=== PATIENT | male | born 1980 | race Caucasian/White ===

== ENCOUNTER 2018-06-02 07:44 | Emergency (ER) | payer MEDICAID ==
--- NOTE | 2018-06-02 08:03 | ED Physician Documentation ---
PD HPI SKIN - Stated complaint Stated Complaint: ABSCESS - History obtained from History obtained from: Patient - History of Present Illness Timing - onset: How many days ago (several) Timing - duration: Days (several) Timing - details: Gradual onset, Still present Location: Neck (back of neck) Quality / character: Painful, Draining (just this morning) Associated symptoms: Myalgias. No: Fever, N/V/D Review of Systems Constitutional: reports: Myalgias. denies: Fever, Chills Nose: denies: Rhinorrhea / runny nose, Congestion Throat: denies: Sore throat Respiratory: denies: Cough PD PAST MEDICAL HISTORY - Past Medical History Cardiovascular: None Respiratory: None Endocrine/Autoimmune: None GI: None : None HEENT: None Psych: None Musculoskeletal: None Derm: None - Past Surgical History Past Surgical History: No - Present Medications Home Medications: Ambulatory Orders Medication Instructions Recorded Confirmed HYDROcod/ACETAM 5/325 [Vicodin 1 - 2 ea PO Q6H PRN #15 tablet 07/10/14 5/325] cephALEXin [Keflex] 500 mg PO Q6H #28 capsule 07/10/14 Chlorhexidine Gluconate [Hibiclens] 10 ml TP DAILY #473 ml 06/02/18 Doxycycline Monohydrate 100 mg PO BID #14 tablet 06/02/18 HYDROcod/ACETAM 5/325 [[place] 5/325] 1 tab PO Q6H PRN #15 tablet 06/02/18 Mupirocin 1 applic TP TID #15 oint...g. 06/02/18 - Allergies Allergies/Adverse Reactions: Allergies Allergy/AdvReac Type Severity Reaction Status Date / Time Sulfa (Sulfonamide Allergy Intermediate Rash Verified 05/03/14 20:19 Antibiotics) - Social History Does the pt smoke?: Yes Smoking Status: Current every day smoker Does the pt drink ETOH?: No Does the pt have substance abuse?: Yes - Immunizations Immunizations are current?: No Immunizations: TDAP >10years/unknown - POLST Patient has POLST: No PD ED PE NORMAL - Vitals Vital signs reviewed: Yes - General General: Alert and oriented X 3, Well developed/nourished, Other (appears in some pain at back of nek) - HEENT HEENT: Atraumatic, Pharynx benign - Neck Neck: Supple, no meningeal sign, No adenopathy - Cardiac Cardiac: RRR, No murmur - Respiratory Respiratory: No respiratory distress, Clear bilaterally - Derm Derm: Normal color, Warm and dry, Other (back of neck with rounded area of redness, swelling, tenderness. Bedside U/S showed there to be inflammed tissue but no fluid reservoir.) Results - Vitals Vitals: Oxygen O2 Source Room air PD MEDICAL DECISION MAKING - ED course Complexity details: considered differential (tender and swelling c/w abscess. Patient says it did drain some last evening and this morning. Bedside US did not show any significant fluid present (2 mm only). ), d/w patient - Sepsis Event Vital Signs: Oxygen O2 Source Room air Departure - Departure Disposition: Home, Self Care Clinical Impression: Abscess Record reviewed to determine appropriate education?: Yes Instructions: ED Staph Infec Abx Tx Only Prescriptions: Chlorhexidine Gluconate [Hibiclens] 10 ml TP DAILY #473 ml Doxycycline Monohydrate 100 mg PO BID #14 tablet HYDROcod/ACETAM 5/325 [[place] 5/325] 1 tab PO Q6H PRN #15 tablet PRN Reason: Pain Mupirocin 1 applic TP TID #15 oint...g. Comments: It does appear to have drained enough this morning that there is very little fluid left in there at this point. Will treat with antibiotics for the infection orally and also use mupirocin topical antibiotic at that site to 3 times a day. Use some naproxen or ibuprofen for pain and inflammation and add Tylenol or hydrocodone if needed for pains. Use chlorhexidine body wash in the shower if you have access to cleanse the germs generally off your skin to prevent or reduce the chance of other spots starting. Recheck if this is not improved quite a bit over the next several days. After the tenderness and drainage have decreased and gone away, the firmness of the scar tissue there may last for several weeks. Discharge Date/Time: 06/02/18 09:06
[2018-06-02] MEDS ORDERED: DOXYCYCLINE 100 MG TABLET PO STA (08:22)
[2018-06-02] MEDS ORDERED: MUPIROCIN 2% OINT 1 GM TOP STA (08:22)
[2018-06-02] MEDS ORDERED: IBUPROFEN 600 MG TABLET PO STA (08:22)
[2018-06-02] MEDS ORDERED: HYDROcod/ACETAM 5/325 MG TABLET PO STA (08:22)
[2018-06-02 09:07] VITALS: BP 140/83
== END 2018-06-02 09:06 | disposition home or self-care (01) ==
LOC: ED 07:44
DX: L02.11 Cutaneous abscess of neck (principal); F17.200 Nicotine dependence, unspecified, uncomplicated
CPT/HCPCS: 99283; A9270

== ENCOUNTER 2021-05-02 02:48 | Outpatient (CLI) | payer MEDICAID | END 2021-05-02 02:49 | disposition critical access hospital (66) | LOC: EMS 02:48 | DX: L98.9 Disorder of the skin and subcutaneous tissue, unspecified (principal); Z59.0 Homelessness; Z76.89 Persons encountering health services in other specified circumstances | CPT/HCPCS: A0425; A0429 ==

== ENCOUNTER 2021-05-02 03:18 | Emergency (ER) | payer MEDICAID ==
[2021-05-02] MEDS ORDERED: DOXYCYCLINE 100 MG TABLET PO STA (03:36)
[2021-05-02] MEDS ORDERED: LORazepam 1 MG TABLET PO STA (03:36)
[2021-05-02] MEDS ORDERED: MUPIROCIN 2% OINT 1 GM TOP STA (03:36)
--- NOTE | 2021-05-02 03:36 | ED Physician Documentation ---
PD HPI SKIN - Stated complaint Stated Complaint: HEAD WOUND/ INFECTION - History obtained from History obtained from: Patient, EMS - History of Present Illness Timing - onset: How many months ago (1) Timing - duration: Months (1) Timing - details: Gradual onset (Patient states he has had a left latter day wound that drains pus periodically with swelling. He was seen in an ER and prescribed antibiotic but did not get it filled. He is here for evaluation of that. Also states he has been doing heroin and would like possible drug treatment/detox.), Waxing and waning, Other (the wound is not any worse currently, but has not improved. He was about to be arrested for being in stolen vehicle with friends, but asked to come to hospital instead.) Location: Scalp (left latter day area) Quality / character: Painful, Raised, Draining (episodically after swelling up) Review of Systems Constitutional: denies: Fever, Chills, Myalgias Nose: denies: Rhinorrhea / runny nose, Congestion Throat: denies: Sore throat Respiratory: denies: Cough GI: denies: Nausea, Vomiting, Diarrhea Psychiatric: reports: Anxiety (feels anxious and nauseated if doesn't keep taking heroin.) PD PAST MEDICAL HISTORY - Past Medical History Cardiovascular: None Respiratory: None Endocrine/Autoimmune: None GI: None : None HEENT: None Psych: Anxiety Musculoskeletal: None Derm: None - Past Surgical History Past Surgical History: No - Present Medications Home Medications: Ambulatory Orders Medication Instructions Recorded Confirmed HYDROcod/ACETAM 5/325 [Vicodin 1 - 2 ea PO Q6H PRN #15 tablet 07/10/14 5/325] cephALEXin [Keflex] 500 mg PO Q6H #28 capsule 07/10/14 Chlorhexidine Gluconate [Hibiclens] 10 ml TP DAILY #473 ml 06/02/18 Doxycycline Monohydrate 100 mg PO BID #14 tablet 06/02/18 HYDROcod/ACETAM 5/325 [[place] 5/325] 1 tab PO Q6H PRN #15 tablet 06/02/18 Mupirocin 1 applic TP TID #15 oint...g. 06/02/18 Chlorhexidine Gluconate [Hibiclens] 15 ml TP DAILY #236 ml 05/02/21 Doxycycline Monohydrate 150 mg PO BID #14 cap 05/02/21 LORazepam [Ativan] 1 mg PO Q6H PRN #15 tablet 05/02/21 Mupirocin Calcium [Mupirocin] 1 applic TP TID #15 gm 05/02/21 Promethazine [Phenergan] 25 mg PO Q6H PRN #15 tab 05/02/21 - Allergies Allergies/Adverse Reactions: Allergies Allergy/AdvReac Type Severity Reaction Status Date / Time Sulfa (Sulfonamide Allergy Intermediate Rash Verified 05/03/14 20:19 Antibiotics) amoxicillin [From Augmentin] Allergy Rash Verified 05/02/21 03:47 clavulanic acid Allergy Rash Verified 05/02/21 03:47 [From Augmentin] - Social History Does the pt smoke?: Yes Smoking Status: Current every day smoker Does the pt drink ETOH?: No Does the pt have substance abuse?: Yes - Immunizations Immunizations are current?: No Immunizations: TDAP >10years/unknown - POLST Patient has POLST: No PD ED PE NORMAL - Vitals Vital signs reviewed: Yes - General General: Alert and oriented X 3, No acute distress (but is somewhat anxious), Well developed/nourished - Cardiac Cardiac: No murmur. No: RRR (regular but mild tachycardic) - Respiratory Respiratory: Clear bilaterally - Derm Derm: Normal color, Warm and dry, Other (left latter day with rounded area of skin irritation with underlying firmness but no fluctuance. Superficial skin ulceration above right eyebrow as well. Appear like infections. ) Results - Vitals Vitals: Vital Signs - 24 hr 05/02/21 05/02/21 03:19 03:41 Temperature 37.1 C Heart Rate 105 H 105 H Respiratory 16 16 Rate Blood Pressure 117/81 H 111/81 H O2 Saturation 97 97 Oxygen O2 Source Room air PD MEDICAL DECISION MAKING - ED course Complexity details: re-evaluated patient, considered differential (His skin infection seems likely staph and can treat with DOxycycline, mupirocin and Hibiclens. He is considering if he wants to get screening labs and wait for Social Work in the morning regarding drug detox/treatment. ), d/w patient ED course: Patient opted to be discharged with information regarding the detox center in [place]. He did not want to wait for social work. Departure - Departure Disposition: 01 Home, Self Care Clinical Impression: Skin infection, Heroin abuse, Anxiety Condition: Stable Record reviewed to determine appropriate education?: Yes Prescriptions: LORazepam [Ativan] 1 mg PO Q6H PRN #15 tablet PRN Reason: Anxiety Doxycycline Monohydrate 150 mg PO BID #14 cap Chlorhexidine Gluconate [Hibiclens] 15 ml TP DAILY #236 ml Mupirocin Calcium [Mupirocin] 1 applic TP TID #15 gm Promethazine [Phenergan] 25 mg PO Q6H PRN #15 tab PRN Reason: Nausea / Vomiting Comments: He can use the chlorhexidine antiseptic soap locally at the area of the face and scalp or body wide to try to reduce the chance of spreading to other places. Clean once or twice daily. Use the mupirocin antibiotic ointment locally to the skin infections. Doxycycline antibiotic twice daily for a week for the infections as well. Lorazepam as needed for anxiety/withdrawal symptoms, and Phenergan for nausea as needed. Contact the [facility] in [place] regarding Acute Detox, [address], .
[2021-05-02 04:44] VITALS: BP 110/84
== END 2021-05-02 04:55 | disposition home or self-care (01) ==
LOC: EDUNIT# → ED 03:18
DX: L08.9 Local infection of the skin and subcutaneous tissue, unspecified (principal); L98.499 Non-pressure chronic ulcer of skin of other sites with unspecified severity; F11.10 Opioid abuse, uncomplicated; F41.9 Anxiety disorder, unspecified; F17.200 Nicotine dependence, unspecified, uncomplicated
CPT/HCPCS: 99283; 99284; A9270; J8499

== ENCOUNTER 2021-06-15 23:31 | Outpatient (CLI) | payer MEDICAID | END 2021-06-15 23:32 | disposition critical access hospital (66) | LOC: EMS 23:31 | DX: R41.82 Altered mental status, unspecified (principal); R46.89 Other symptoms and signs involving appearance and behavior | CPT/HCPCS: A0425; A0429; A0999 ==

== ENCOUNTER 2021-06-15 23:45 | Emergency (ER) | payer MEDICAID ==
[2021-06-15 23:52] VITALS: BP 106/59
--- NOTE | 2021-06-16 00:29 | ED Physician Documentation ---
History of Present Illness - Stated complaint Stated Complaint: OD - Chief complaint Chief Complaint: General - History obtained from History obtained from: Patient, EMS - Additonal information Additional information: Patient is brought to the emergency department by EMS for chief complaint of heroin overdose. Medics state they were called by patient's friends who stated that the patient been doing heroin and was found unresponsive. He was not clear whether he was breathing or not, but friends gave him 2 doses of Narcan and did some chest compressions. When the medics arrived, the patient was awake and groaning, stating he was having severe cramps in his abdomen. Patient states that he believes he did the heroin around 20-20 100. He states he was feeling fine before the Narcan kicked in. He denies any complaints now except for abdominal cramping and nausea. No diarrhea. No fevers or chills. No chest pain or shortness of breath. No other complaints at this time. Review of Systems Ten Systems: 10 systems reviewed and negative Constitutional: reports: Reviewed and negative Eyes: reports: Reviewed and negative Ears: reports: Reviewed and negative Nose: reports: Reviewed and negative Throat: reports: Reviewed and negative Cardiac: reports: Reviewed and negative Respiratory: reports: Reviewed and negative GI: reports: Abdominal Pain, Nausea : reports: Reviewed and negative Skin: reports: Reviewed and negative Musculoskeletal: reports: Reviewed and negative Neurologic: reports: Reviewed and negative Psychiatric: reports: Reviewed and negative Endocrine: reports: Reviewed and negative Immunocompromised: reports: Reviewed and negative PD PAST MEDICAL HISTORY - Past Medical History Cardiovascular: None Respiratory: None Endocrine/Autoimmune: None GI: None : None HEENT: None Psych: Anxiety Musculoskeletal: None Derm: None - Past Surgical History Past Surgical History: No - Present Medications Home Medications: Ambulatory Orders Medication Instructions Recorded Confirmed No Known Home Medications 06/15/21 06/15/21 - Allergies Allergies/Adverse Reactions: Allergies Allergy/AdvReac Type Severity Reaction Status Date / Time Sulfa (Sulfonamide Allergy Intermediate Rash Verified 06/15/21 23:59 Antibiotics) amoxicillin [From Augmentin] Allergy Rash Verified 06/15/21 23:59 clavulanic acid Allergy Rash Verified 06/15/21 23:59 [From Augmentin] - Social History Does the pt smoke?: Yes Smoking Status: Current every day smoker Does the pt drink ETOH?: No Does the pt have substance abuse?: Yes - Immunizations Immunizations are current?: No Immunizations: TDAP >10years/unknown - POLST Patient has POLST: No PD ED PE NORMAL - Vitals Vital signs reviewed: Yes - General General: Alert and oriented X 3, Well developed/nourished, Other (Patient is groaning and crying, but otherwise in no apparent distress.) - HEENT HEENT: Atraumatic, PERRL, EOMI, Moist mucous membranes - Neck Neck: Supple, no meningeal sign - Cardiac Cardiac: RRR, No murmur, Strong equal pulses - Respiratory Respiratory: No respiratory distress, Clear bilaterally - Abdomen Abdomen: Soft, Non distended, Other (Mild diffuse tenderness. No rebound or guarding.) - Derm Derm: Normal color, Warm and dry, No rash - Extremities Extremities: No deformity, No edema - Neuro Neuro: Alert and oriented X 3 - Psych Psych: Normal mood, Normal affect Results - Vitals Vitals: Vital Signs - 24 hr 06/15/21 23:47 Temperature 36.3 C L Heart Rate 75 Respiratory 28 H Rate Blood Pressure 106/59 L O2 Saturation 96 Oxygen O2 Source Room air Oxygen Flow Rate 0 PD MEDICAL DECISION MAKING - ED course Complexity details: considered differential, d/w patient ED course: The patient was observed in the emergency department for approximately an hour and did not show any further signs of respiratory depression or altered mental status. I discussed with the patient that he does not have an acute abdomen and most likely, the cramps are the result of the dark he had kicking in. I have informed the patient, who wants something for his discomfort, that I will not be giving him any narcotic pain medication. He has vomited once in the emergency department and has been given a dose of oral dissolving Zofran. I feel the patient is stable for discharge home. Departure - Departure Disposition: 01 Home, Self Care Clinical Impression: Heroin abuse Condition: Stable Instructions: ED Narcotic Abuse Discharge Date/Time: 06/16/21 01:10
[2021-06-16] MEDS ORDERED: ONDANSETRON ODT 4 MG TABLET TL STA (00:37)
== END 2021-06-16 01:10 | disposition home or self-care (01) ==
LOC: EDUNIT# → ED 23:45
DX: F11.10 Opioid abuse, uncomplicated (principal); F17.200 Nicotine dependence, unspecified, uncomplicated
CPT/HCPCS: 99283; 99284; Q0162

== ENCOUNTER 2022-10-20 15:15 | Emergency (ER) | payer MEDICAID ==
[2022-10-20 15:21] VITALS: BP 122/73
[2022-10-20] MEDS ORDERED: CLINDAMYCIN 150 MG CAPSULE PO STA (17:31)
--- NOTE | 2022-10-20 17:38 | ED Physician Documentation ---
History of Present Illness - Stated complaint Stated Complaint: LT LEG SWOLLEN - Chief complaint Chief Complaint: Ext Problem - History obtained from History obtained from: Patient - History of Present Illness Pain level max: 1 Pain level now: 1 - Additonal information Additional information: 41-year-old male presents to the emergency department with redness to the bilateral lower extremities. He states there are small pustules that blistered. He first noticed this a few days ago. He is not having any pain. Does not recall any injuries. Does not recall any santiago or trauma. Nothing makes it better or worse. No fevers. No chills. Denies any drug use. Review of Systems Constitutional: denies: Fever, Chills Musculoskeletal: denies: Neck pain, Back pain Neurologic: denies: Headache PD PAST MEDICAL HISTORY - Past Medical History Cardiovascular: None Respiratory: None Endocrine/Autoimmune: None GI: None : None HEENT: None Psych: Anxiety Musculoskeletal: None Derm: None - Past Surgical History Past Surgical History: No - Present Medications Home Medications: Ambulatory Orders Medication Instructions Recorded Confirmed clindamycin HCL [Cleocin HCl] 300 mg PO Q6H #40 cap 10/20/22 - Allergies Allergies/Adverse Reactions: Allergies Allergy/AdvReac Type Severity Reaction Status Date / Time Sulfa (Sulfonamide Allergy Intermediate Rash Verified 10/20/22 15:18 Antibiotics) amoxicillin [From Augmentin] Allergy Rash Verified 10/20/22 15:18 clavulanic acid Allergy Rash Verified 10/20/22 15:18 [From Augmentin] - Social History Does the pt smoke?: Yes Smoking Status: Current every day smoker Does the pt drink ETOH?: No Does the pt have substance abuse?: Yes - Immunizations Immunizations are current?: No Immunizations: TDAP >10years/unknown - POLST Patient has POLST: No PD ED PE NORMAL - Vitals Vital signs reviewed: Yes - General General: Alert and oriented X 3, No acute distress - HEENT HEENT: Moist mucous membranes - Cardiac Cardiac: RRR - Respiratory Respiratory: No respiratory distress, Clear bilaterally - Derm Derm: Warm and dry - Extremities Extremities: Other (4 x 6 cm area of erythema to the medial aspect of the left calf. No calf tenderness. No cord. There are 2 small pustules on the right lower extremity as well. No crepitus on either leg. Neurovascular intact. Otherwise normal exam of the legs) - Neuro Neuro: Alert and oriented X 3 Results - Vitals Vitals: Vital Signs - 24 hr 10/20/22 15:18 Temperature 36.5 C Heart Rate 98 Respiratory 16 Rate Blood Pressure 122/73 O2 Saturation 97 Oxygen O2 Source Room air PD Medical Decision Making - ED course Complexity details: considered differential, d/w patient ED course: 41-year-old male with what appears to be cellulitis of the left lower extremity mainly, small amount on the right lower extremity. We will place on antibiotics and have him follow-up closely with his doctor. Patient is well-appearing, nontoxic. Afebrile. No evidence of sepsis. Denies any drug use or IV drug use. Patient counseled regarding signs and symptoms for which I believe and urgent re-evaluation would be necessary. Patient with good understanding of and agreement to plan and is comfortable going home at this time This document was made in part using voice recognition software. While efforts are made to proofread this document, sound alike and grammatical errors may occur. Departure - Departure Disposition: 01 Home, Self Care Clinical Impression: Cellulitis Qualifiers: Site of cellulitis: extremity Site of cellulitis of extremity: lower extremity Laterality: left Qualified Code(s): L03.116 - Cellulitis of left lower limb Condition: Good Instructions: ED Infec Skin Cellulitis Follow-Up: Your,doctor in 3 days [Other] Prescriptions: clindamycin HCL [Cleocin HCl] 300 mg PO Q6H #40 cap Comments: Your prescription was sent to [facility] in [place]. You were given the first dose of antibiotics tonight. You need to order picker the remainder of your medication either tonight or tomorrow morning. Please follow-up with your doctor in 3 days for a wound check. Return here if worsening. Discharge Date/Time: 10/20/22 17:44
== END 2022-10-20 17:44 | disposition home or self-care (01) ==
LOC: ED 15:15
DX: L03.116 Cellulitis of left lower limb (principal); F17.200 Nicotine dependence, unspecified, uncomplicated
CPT/HCPCS: 99282; 99283; A9270

== ENCOUNTER 2022-11-19 17:11 | Emergency (ER) | payer MEDICAID ==
[2022-11-19 17:31] VITALS: BP 139/63
[2022-11-19] MEDS ORDERED: BUPRENORPHINE/NALOXONE 8-2 MG TAB SL STA (18:02)
--- NOTE | 2022-11-19 18:04 | ED Physician Documentation ---
History of Present Illness - Stated complaint Stated Complaint: MED REFILL - Chief complaint Chief Complaint: General - History obtained from History obtained from: Patient - History of Present Illness Timing: Today Pain level max: 0 Pain level now: 0 - Additonal information Additional information: 41-year-old male presents to the emergency department stating that he is out of his Suboxone. Has an appointment tomorrow with his doctor. Requesting a dose of Suboxone here. He recently got out of rehab. Review of Systems Constitutional: denies: Fever GI: denies: Vomiting Neurologic: denies: Headache PD PAST MEDICAL HISTORY - Past Medical History Cardiovascular: None Respiratory: None Endocrine/Autoimmune: None GI: None : None HEENT: None Psych: Anxiety Musculoskeletal: None Derm: None - Past Surgical History Past Surgical History: No - Present Medications Home Medications: Ambulatory Orders Medication Instructions Recorded Confirmed clindamycin HCL [Cleocin HCl] 300 mg PO Q6H #40 cap 10/20/22 - Allergies Allergies/Adverse Reactions: Allergies Allergy/AdvReac Type Severity Reaction Status Date / Time Sulfa (Sulfonamide Allergy Intermediate Rash Verified 10/20/22 15:18 Antibiotics) clavulanic acid Allergy Rash Verified 10/20/22 15:18 [From Augmentin] - Social History Does the pt smoke?: Yes Smoking Status: Current every day smoker Does the pt drink ETOH?: No Does the pt have substance abuse?: Yes - Immunizations Immunizations are current?: No Immunizations: TDAP >10years/unknown - POLST Patient has POLST: No PD ED PE NORMAL - Vitals Vital signs reviewed: Yes - General General: Alert and oriented X 3, No acute distress - HEENT HEENT: Moist mucous membranes - Neck Neck: Supple, no meningeal sign - Cardiac Cardiac: RRR - Respiratory Respiratory: No respiratory distress, Clear bilaterally - Abdomen Abdomen: Soft, Non tender, Non distended - Derm Derm: Warm and dry - Neuro Neuro: Alert and oriented X 3 - Psych Psych: Normal mood, Normal affect Results - Vitals Vitals: Vital Signs - 24 hr 11/19/22 17:28 Temperature 36.3 C L Heart Rate 96 Respiratory 18 Rate Blood Pressure 139/63 H O2 Saturation 98 Oxygen O2 Source Room air PD Medical Decision Making - ED course Complexity details: considered differential, d/w patient ED course: Patient was given a dose of Suboxone here. He will follow-up with his doctor tomorrow for further medication. No emergency medical condition at this time. Does not appear to be in acute withdrawal. Patient counseled regarding signs and symptoms for which I believe and urgent re-evaluation would be necessary. Patient with good understanding of and agreement to plan and is comfortable going home at this time This document was made in part using voice recognition software. While efforts are made to proofread this document, sound alike and grammatical errors may occur. Departure - Departure Disposition: 01 Home, Self Care Clinical Impression: Encounter for medical screening examination Condition: Good Instructions: ED Screening Exam Medical Nonurgent Follow-Up: your,doctor tomorrow [Other] Comments: You were given a dose of Suboxone today. Please follow-up with your doctor tomorrow as scheduled. Discharge Date/Time: 11/19/22 18:21
== END 2022-11-19 18:21 | disposition home or self-care (01) ==
LOC: ED 17:11
DX: Z76.0 Encounter for issue of repeat prescription (principal); F17.200 Nicotine dependence, unspecified, uncomplicated
CPT/HCPCS: 99282; 99283

== ENCOUNTER 2023-01-29 20:34 | Emergency (ER) | payer MEDICAID ==
[2023-01-29 21:00] VITALS: BP 114/59
[2023-01-29] MEDS ORDERED: CLINDAMYCIN 150 MG CAPSULE PO STA (21:12)
--- NOTE | 2023-01-29 21:13 | ED Physician Documentation ---
History of Present Illness - Stated complaint Stated Complaint: RT LEG SWOLLEN - Chief complaint Chief Complaint: Ext Problem - History obtained from History obtained from: Patient - Additonal information Additional information: 42-year-old gentleman with ongoing inhalational fentanyl use presents with multiple sores on his body. He has never used injected drugs. Over the last few days he is developed increasing weeping sores on both legs, both hands, and the nose. He denies fevers or chills. He is planning on going to detox. No personal history of MRSA. PD PAST MEDICAL HISTORY - Past Medical History Cardiovascular: None Respiratory: None Endocrine/Autoimmune: None GI: None : None HEENT: None Psych: Anxiety Musculoskeletal: None Derm: None - Past Surgical History Past Surgical History: No - Present Medications Home Medications: Ambulatory Orders Medication Instructions Recorded Confirmed Chlorhexidine Gluconate [Hibiclens] 10 ml TP DAILY #236 ml 01/29/23 clindamycin HCL [Cleocin HCl] 300 mg PO QID #40 cap 01/29/23 - Allergies Allergies/Adverse Reactions: Allergies Allergy/AdvReac Type Severity Reaction Status Date / Time Sulfa (Sulfonamide Allergy Intermediate Rash Verified 01/29/23 20:59 Antibiotics) clavulanic acid Allergy Rash Verified 01/29/23 20:59 [From Augmentin] - Social History Does the pt smoke?: Yes Smoking Status: Current every day smoker Does the pt drink ETOH?: No Does the pt have substance abuse?: Yes - Immunizations Immunizations are current?: No Immunizations: TDAP >10years/unknown - POLST Patient has POLST: No PD ED PE NORMAL - Vitals Vital signs reviewed: Yes - General General: Alert and oriented X 3, No acute distress - HEENT HEENT: Other (There is a denuded sore on the left side of the nose) - Extremities Extremities: Other (Multiple sores on both hands without obvious infection; . Multiple shallow ulcers on both legs with infection. The worst was on the right leg which was cultured.) - Neuro Neuro: Alert and oriented X 3, Normal speech Results - Vitals Vitals: Vital Signs - 24 hr 01/29/23 01/29/23 20:55 21:06 Temperature 37.0 C Heart Rate 130 H Respiratory 19 17 Rate Blood Pressure 114/59 L O2 Saturation 98 Oxygen O2 Source Room air PD Medical Decision Making - ED course ED course: 42-year-old gentleman with kind of disseminated staph infection, sulfa allergic. High suspicion for MRSA. Culture pending. Departure - Departure Disposition: 01 Home, Self Care Clinical Impression: Staphylococcal infection of skin Condition: Good Record reviewed to determine appropriate education?: Yes Instructions: ED Staph Infec Abx Tx Only Prescriptions: clindamycin HCL [Cleocin HCl] 300 mg PO QID #40 cap Chlorhexidine Gluconate [Hibiclens] 10 ml TP DAILY #236 ml Comments: We are performing a wound culture, the results should be done in 48-72 hours. If antibiotic change is necessary we will call you. Return if worse in the meantime, especially if you develop increased pain, fevers, cannot keep down the medication. Otherwise follow-up with your physician in approximately 2-3 days. Go to detox as you are planning tomorrow.
== END 2023-01-29 21:36 | disposition home or self-care (01) ==
LOC: ED 20:34
DX: L08.9 Local infection of the skin and subcutaneous tissue, unspecified (principal); B95.8 Unspecified staphylococcus as the cause of diseases classified elsewhere; F17.200 Nicotine dependence, unspecified, uncomplicated
CPT/HCPCS: 87070; 87077; 87205; 99283; A9270

== ENCOUNTER 2023-05-24 19:47 | Emergency (ER) | payer MEDICAID ==
[2023-05-24 19:59] VITALS: BP 123/77; O2SAT 97
--- NOTE | 2023-05-24 20:36 | ED Physician Documentation ---
History of Present Illness - Stated complaint Stated Complaint: JAW PX - Chief complaint Chief Complaint: Heent - Additonal information Additional information: 42-year-old male presents emergency department for evaluation of acute right lower jaw pain at the site of a molar that is severely decayed. Reports trying to brush his teeth and picking something out of his tooth several days ago. He is a pack per day smoker. Has not seen a dentist in years. He has no trismus or fevers. 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 Review of Systems Constitutional: denies: Fever Nose: reports: Reviewed and negative Throat: reports: Dental pain / toothache Cardiac: reports: Reviewed and negative Respiratory: reports: Reviewed and negative GI: reports: Reviewed and negative PD PAST MEDICAL HISTORY - Past Medical History Cardiovascular: None Respiratory: None Neuro: None Endocrine/Autoimmune: None GI: None : None HEENT: None Psych: Anxiety Musculoskeletal: None Derm: None - Past Surgical History Past Surgical History: No - Present Medications Home Medications: Ambulatory Orders Medication Instructions Recorded Confirmed Chlorhexidine Gluconate [Hibiclens] 10 ml TP DAILY #236 ml 01/29/23 clindamycin HCL [Cleocin HCl] 300 mg PO QID #40 cap 01/29/23 Chlorhexidine Gluconate [Peridex] 10 ml MM DAILY #118 ml 05/24/23 Penicillin V Potassium 500 mg PO Q6HR #40 tablet 05/24/23 - Allergies Allergies/Adverse Reactions: Allergies Allergy/AdvReac Type Severity Reaction Status Date / Time Sulfa (Sulfonamide Allergy Intermediate Rash Verified 05/24/23 19:50 Antibiotics) clavulanic acid Allergy Rash Verified 05/24/23 19:50 [From Augmentin] - Social History Does the pt smoke?: Yes Smoking Status: Current every day smoker Does the pt drink ETOH?: No Does the pt have substance abuse?: Yes - Immunizations Immunizations are current?: No Immunizations: TDAP >10years/unknown - POLST Patient has POLST: No PD ED PE EXPANDED - General General: Alert, No acute distress - HEENT HEENT: Dental decay (Severe dental disease and most of his teeth. The right lower molar appears to have significant decay. No obvious drainage.), Other (No trismus, no dysphonia. Uvula is midline. No soft palate asymmetry or s welling.) Results - Vitals Vitals: Vital Signs - 24 hr 05/24/23 19:50 Temperature 36.5 C Heart Rate 90 Respiratory 16 Rate Blood Pressure 123/77 O2 Saturation 97 Oxygen O2 Source Room air PD Medical Decision Making - ED course Complexity details: d/w patient ED course: 42-year-old male here with dental pain after portion of his molar decayed and was removed several days ago. It has been quite sometime since he seen a dentist and he does smoke a pack of tobacco per day. On exam he has significant dental disease throughout most of his mouth. He will be started on penicillin given his allergy profile. I am advising Peridex mouth rinse. Follow closely with a dentist. The usual emergent return precautions were discussed. Departure - Departure Disposition: 01 Home, Self Care Clinical Impression: Dental decay Condition: Stable Record reviewed to determine appropriate education?: Yes Prescriptions: Penicillin V Potassium 500 mg PO Q6HR #40 tablet Chlorhexidine Gluconate [Peridex] 10 ml MM DAILY #118 ml Comments: Manohar you have severe dental cavities and decay. You will continue to have dental pain until you are seen by a dentist and establish a plan for correction of your dental disease. If he can stop smoking I would recommend it. You can take Tylenol and ibuprofen [id number] for discomfort. Topical numbing agent such as Orajel or Anbesol can also be helpful. I sent a prescription for penicillin to the [facility] in [place]. I have also sent a prescription for Peridex mouth rinse. Return to the ER if you develop facial swelling, have fevers, cannot open your mouth fully.
== END 2023-05-24 20:46 | disposition home or self-care (01) ==
LOC: ED 19:47
DX: K02.9 Dental caries, unspecified (principal); F17.200 Nicotine dependence, unspecified, uncomplicated
CPT/HCPCS: 99282; 99283